=== PATIENT | female | born 1960 ===

== ENCOUNTER 2021-01-26 11:00 | Inpatient (IN) | payer OTHER ==
[~2021-01-26] VITALS: Ht 165.1 cm; Wt 80.7 kg
[2021-01-26] MEDS ORDERED: AVAPRO150 MG PO (13:27)
[2021-02-02] MEDS ORDERED: BACTRIM DS TAB1 EACH PO (06:33)
[2021-02-02] MEDS ORDERED: INTEGRA PLUS C1 EACH PO (06:33)
[2021-02-02] MEDS ORDERED: OXYC1TAB9 PO (06:33)
[2021-02-02] MEDS ORDERED: XARELTO10 MG PO (06:33)
== END 2021-02-02 17:12 | DRG 470 ==
LOC: O/R 01-31 06:15 → SURH 01-31 06:15
PROVIDERS: ADMIT Orthopaedic Surgery Sports Medicine; ATTEND Orthopaedic Surgery Sports Medicine
PROC: 3E0F7SF Introduction of Other Gas into Respiratory Tract, Via Natural or Artificial Opening (ICD-10-PCS; 2021-01-31)
PROC: 0SRC0J9 Replacement of Right Knee Joint with Synthetic Substitute, Cemented, Open Approach (ICD-10-PCS; principal; 2021-01-31 10:45)
DX: M17.11 Unilateral primary osteoarthritis, right knee (principal); I10 Essential (primary) hypertension; Z20.822 Contact with and (suspected) exposure to COVID-19